=== PATIENT | female | born 1935 | race Caucasian/White ===

== ENCOUNTER → 2019-09-25 | Outpatient (CLI) | payer MEDICARE ==
[~2019-09-25] MED LIST: COUMADIN; COUMADIN5 MG PO; COUMADIN7.5 MG PO; FAMOTIDINE20 MG PO; HYDROCODONE PO; LEVOTHYROXINE100 MC1 PO; LEVOTHYROXINE137 MCG PO; LORAZEPAM2 MG PO; LOSARTAN PO; LOSARTAN POTAS100 MG PO; LOSARTAN-HCTZ1 EAC2 PO; METOPROLOL TAR100 MG PO; NORCO 5-325 TA1 EACH PO; Z.0.METOPROLOL SUC10 PO
--- NOTE | 2019-09-25 12:24 | Diagnostic Imaging Report ---
Exam: PA and lateral chest radiograph Clinical history: Acute bronchitis Findings: There is no evidence of pulmonary consolidation, pleural effusion, or pneumothorax. The cardiac size is moderately enlarged. The descending aorta is tortuous. There are 2 spinal stimulator leads terminating in the mid thoracic spine. 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 The regional osseous structures are unremarkable. Impression: 1. Cardiomegaly. Signed by: Dr. Vinicio Leal MD on 09/25/2019 12:21 PM
== END ==
LOC: RAD 11:44
PROVIDERS: ATTEND Internal Medicine
DX: J20.9 Acute bronchitis, unspecified (principal)
CPT/HCPCS: 71046

== ENCOUNTER 2020-12-11 14:54 | Emergency (ER) | payer MEDICARE ==
[~2020-12-11] VITALS: Ht 170.2 cm; Wt 88.5 kg
[2020-12-11] MEDS ORDERED: FUROSEMIDE INJ 10 MG/ML 4 ML VIAL IV ONE (15:30)
[2020-12-11 15:49] LABS: BASOPHILS # (AUTO) 0.1 (0.0-0.1); BASOPHILS % 1.1 % (0.0-1.0); EOSINOPHILS # (AUTO) 0.5 (0.0-0.4); EOSINOPHILS % 6.3 % (0.0-6.0); HEMATOCRIT 34.6 % (34.2-44.1); HEMOGLOBIN 11.4 g/dL (12.0-16.0); LYMPHOCYTES # (AUTO) 1.5 (1.0-3.2); LYMPHOCYTES % 20.6 % (18.0-39.1); MEAN CORPUSCULAR HEMOGLOBIN 30.6 pg (28-32); MEAN CORPUSCULAR HGB CONC 32.9 g/dL (31-35); MEAN CORPUSCULAR VOLUME 92.8 fL (81-99); MONOCYTES # (AUTO) 0.9 (0.2-0.8); NEUTROPHILS # (AUTO) 4.3 (2.1-6.9); NEUTROPHILS % 59.6 % (38.7-80.0); PLATELET COUNT 177 x10e3/uL (140-360); RED BLOOD COUNT 3.73 x10e6/uL (3.6-5.1); RED CELL DISTRIBUTION WIDTH 14.1 % (11.7-14.4)
[2020-12-11 15:58] LABS: ANION GAP 11.6 mmol/L (8-16); CALCIUM 8.9 mg/dL (8.4-10.2); CREATININE, SERUM 1.14 mg/dL (0.57-1.11); POTASSIUM 3.6 mmol/L (3.5-5.1)
[2020-12-11] MEDS ORDERED: DOXYCYCLINE HY100 MG PO (16:20)
[2020-12-11 17:21] VITALS: BP 159/96
== END 2020-12-11 17:22 | disposition home or self-care (01) ==
LOC: ER 15:35
DX: R60.9 Edema, unspecified (principal); I10 Essential (primary) hypertension; I50.9 Heart failure, unspecified; I48.91 Unspecified atrial fibrillation; E03.9 Hypothyroidism, unspecified; M54.9 Dorsalgia, unspecified; G89.29 Other chronic pain; Z95.810 Presence of automatic (implantable) cardiac defibrillator
CPT/HCPCS: 36415; 80048; 83880; 85025; 93970; 99284; J1940

== ENCOUNTER 2022-04-09 07:28 | Emergency (ER) | payer MEDICARE, OTHER ==
[~2022-04-09] VITALS: Ht 167.6 cm; Wt 118.8 kg
[~2022-04-09 07:28] MED LIST changes: +DOXYCYCLINE HY100 MG PO
[2022-04-09] MEDS ORDERED: TRAMADOL HCL 50 MG TAB PO ONE (07:45)
[2022-04-09] MEDS ORDERED: HYDROCODONE/APAP 10MG-325MG TAB PO ONE (09:00)
== END 2022-04-09 09:19 | disposition home or self-care (01) ==
LOC: ER 07:35 → MERGE 07:35 → ER 09:19
DX: S30.0XXA Contusion of lower back and pelvis, initial encounter (principal); S70.01XA Contusion of right hip, initial encounter; G89.29 Other chronic pain; W01.198A Fall on same level from slipping, tripping and stumbling with subsequent striking against other object, initial encounter; Y92.091 Bathroom in other non-institutional residence as the place of occurrence of the external cause; I10 Essential (primary) hypertension; E03.9 Hypothyroidism, unspecified; Z95.0 Presence of cardiac pacemaker
CPT/HCPCS: 72131; 72192; 99284

== ENCOUNTER 2022-09-07 08:20 | Emergency (ER) | payer MEDICARE ==
[~2022-09-07] VITALS: Ht 170.2 cm; Wt 108.9 kg
[2022-09-07] MEDS ORDERED: SODIUM CHLORIDE 0.9% 1000ML 1,000 ML IV STA (09:06)
[2022-09-07] MEDS ORDERED: ONDANSETRON HCL INJ 2MG/ML 2ML 2 MG/ML VIAL IV STA (09:06)
[2022-09-07 09:14] LABS: BASOPHILS % 0.7 % (0.0-1.0); EOSINOPHILS # (AUTO) 0.4 (0.0-0.4); EOSINOPHILS % 7.1 % (0.0-6.0); HEMATOCRIT 34.9 % (34.2-44.1); HEMOGLOBIN 9.6 g/dL (12.0-16.0); LYMPHOCYTES # (AUTO) 1.2 (1.0-3.2); LYMPHOCYTES % 21.9 % (18.0-39.1); MEAN CORPUSCULAR HEMOGLOBIN 25.5 pg (28-32); MEAN CORPUSCULAR HGB CONC 27.5 g/dL (31-35); MEAN CORPUSCULAR VOLUME 92.8 fL (81-99); MONOCYTES # (AUTO) 0.6 (0.2-0.8); MONOCYTES % 11.3 % (4.4-11.3); NEUTROPHILS # (AUTO) 3.3 (2.1-6.9); NEUTROPHILS % 58.6 % (38.7-80.0); PLATELET COUNT 144 x10e3/uL (140-360); RED BLOOD COUNT 3.76 x10e6/uL (3.6-5.1); RED CELL DISTRIBUTION WIDTH 17.5 % (11.7-14.4)
[2022-09-07 09:31] LABS: INR 1.29; PROTHROMBIN TIME 16.3 seconds (11.9-14.5)
[2022-09-07 09:32] LABS: PARTIAL THROMBOPLASTIN TIME 32.9 seconds (23.8-35.5)
[2022-09-07 09:44] LABS: ALBUMIN 3.4 g/dL (3.5-5.0); ALBUMIN/GLOBULIN RATIO 0.9 (0.8-2.0); ALKALINE PHOSPHATASE 100 IU/L (40-150); ANION GAP 11.9 mmol/L (8-16); BLOOD UREA NITROGEN 19 mg/dL (7-26); BUN/CREATININE RATIO 14 (6-25); CARBON DIOXIDE 26 mmol/L (22-29); CHLORIDE 110 mmol/L (98-107); CREATINE KINASE 38 IU/L (29-168); CREATININE, SERUM 1.33 mg/dL (0.57-1.11); GLUCOSE 106 mg/dL (74-118); LIPASE 9 U/L (8-78); MAGNESIUM 2.2 MG/DL (1.3-2.1); POTASSIUM 3.9 mmol/L (3.5-5.1); SODIUM 144 mmol/L (136-145)
[2022-09-07 09:45] LABS: ALANINE AMINOTRANSFERASE < 6 IU/L (0-55)
[2022-09-07 09:50] LABS: CLARITY,URINE CLEAR (CLEAR); COLOR,URINE YELLOW (YELLOW)
[2022-09-07 09:51] LABS: KETONES,URINE NEGATIVE (NEGATIVE); LEUKOCYTE ESTERASE ,URINE NEGATIVE (NEGATIVE); NITRITE,URINE NEGATIVE (NEGATIVE); PROTEIN,URINE DIPSTICK 2+ (NEGATIVE)
[2022-09-07 10:08] LABS: BACTERIA,URINE FEW /HPF; EPITHELIAL CELLS,URINE MANY /LPF; RBC,URINE 0-5 /HPF (0-5); TRANSITIONAL EPI CELLS,URINE RARE
[2022-09-07] MEDS ORDERED: ONDANSETRON ODT4 MG PO (13:04)
[2022-09-07] MEDS ORDERED: IOPAMIDOL 370 MG/ML 100 ML INFUS..BTL INJ ONE (15:23)
== END 2022-09-07 14:07 | disposition home or self-care (01) ==
LOC: ER 08:26
DX: R11.2 Nausea with vomiting, unspecified (principal); I10 Essential (primary) hypertension; E03.9 Hypothyroidism, unspecified; M54.9 Dorsalgia, unspecified; G89.29 Other chronic pain; Z87.442 Personal history of urinary calculi; Z95.0 Presence of cardiac pacemaker; R94.31 Abnormal electrocardiogram [ECG] [EKG]; F17.210 Nicotine dependence, cigarettes, uncomplicated
CPT/HCPCS: 36415; 74177; 80053; 81001; 82550; 82553; 83690; 83735; 84484; 85025; 85610; 85730; 87086; 93005; 99284; C9113; J2405; J7030; Q9967

== ENCOUNTER 2023-01-03 08:06 | Emergency (ER) | payer MEDICARE ==
[~2023-01-03] VITALS: Ht 170.2 cm; Wt 108.9 kg
[~2023-01-03 08:06] MED LIST changes: +ONDANSETRON ODT4 MG PO
[2023-01-03 09:18] LABS: BASOPHILS % 0.4 % (0.0-1.0); EOSINOPHILS # (AUTO) 0.4 (0.0-0.4); EOSINOPHILS % 5.7 % (0.0-6.0); HEMATOCRIT 32.4 % (34.2-44.1); HEMOGLOBIN 9.6 g/dL (12.0-16.0); LYMPHOCYTES # (AUTO) 0.9 (1.0-3.2); LYMPHOCYTES % 12.2 % (18.0-39.1); MEAN CORPUSCULAR HEMOGLOBIN 25.8 pg (28-32); MEAN CORPUSCULAR HGB CONC 29.6 g/dL (31-35); MEAN CORPUSCULAR VOLUME 87.1 fL (81-99); MONOCYTES # (AUTO) 0.6 (0.2-0.8); MONOCYTES % 9.2 % (4.4-11.3); NEUTROPHILS % 72.2 % (38.7-80.0); PLATELET COUNT 163 x10e3/uL (140-360); RED BLOOD COUNT 3.72 x10e6/uL (3.6-5.1); RED CELL DISTRIBUTION WIDTH 19.2 % (11.7-14.4)
[2023-01-03 09:29] LABS: CLARITY,URINE CLEAR (CLEAR); COLOR,URINE YELLOW (YELLOW); KETONES,URINE NEGATIVE (NEGATIVE); LEUKOCYTE ESTERASE ,URINE NEGATIVE (NEGATIVE); NITRITE,URINE NEGATIVE (NEGATIVE); PROTEIN,URINE DIPSTICK NEGATIVE (NEGATIVE); URINE UROBILINOGEN 0.2 mg/dL (0.2 - 1)
[2023-01-03 09:32] LABS: CREATININE, SERUM 1.57 mg/dL (0.57-1.11)
[2023-01-03 09:33] LABS: ALBUMIN 3.4 g/dL (3.5-5.0); CALCIUM 8.7 mg/dL (8.4-10.2)
[2023-01-03 09:51] LABS: RBC,URINE 0-5 /HPF (0-5); WBC,URINE (MAN) 0-5 /HPF (0-5)
[2023-01-03 09:52] LABS: BACTERIA,URINE RARE /HPF; EPITHELIAL CELLS,URINE RARE /LPF
[2023-01-03] MEDS ORDERED: ONDANSETRON ODT4 MG PO (10:32)
[2023-01-03] MEDS ORDERED: DOXYCYCLINE HY100 MG PO (10:52)
[2023-01-03] MEDS ORDERED: FUROSEMIDE INJ 10 MG/ML 4 ML VIAL IV ONE (11:00)
[2023-01-03 11:38] VITALS: O2SAT 98
== END 2023-01-03 12:13 | disposition home or self-care (01) ==
LOC: ER 08:12
DX: L03.116 Cellulitis of left lower limb (principal); I89.0 Lymphedema, not elsewhere classified; R53.1 Weakness; R11.0 Nausea; R68.83 Chills (without fever); N18.9 Chronic kidney disease, unspecified; I48.91 Unspecified atrial fibrillation; Z79.01 Long term (current) use of anticoagulants; E03.9 Hypothyroidism, unspecified; Z95.0 Presence of cardiac pacemaker; Z79.899 Other long term (current) drug therapy
CPT/HCPCS: 36415; 71045; 80053; 81001; 83880; 84484; 85025; 93005; 99284; J1940